=== PATIENT | male | born 1960 | race Caucasian/White ===

== ENCOUNTER 2017-11-15 06:27 | Day surgery (SDC) | payer OTHER ==
[2017-11-15] MEDS: BUPIVACAINE 0.25% (MPF) 30 ML INJ INJ
[~2017-11-15 06:27] MED LIST: CEFAZOLIN 2 GM/50 ML (PMX) 50 ML IVPB; SOD CHLORIDE 0.9% 1,000 ML IV
[2017-11-15] MEDS ORDERED: LIDOCAINE 100 MG SYRINGE (10:15)
[2017-11-15] MEDS ORDERED: PROPOFOL 20 ML (10:15)
[2017-11-15] MEDS ORDERED: ONDANSETRON 4 MG INJ (10:15)
[2017-11-15] MEDS ORDERED: CEFAZOLIN 1 GM INJ (10:15)
[2017-11-15] MEDS ORDERED: MEPERIDINE /PF (100 MG/2 ML) AMPULE (10:15)
[2017-11-15] MEDS ORDERED: BUPIVACAINE 0.25% (MPF) 30 ML INJ (10:23)
[2017-11-15] MEDS ORDERED: FENTAnyl 50 MCG/ML VIAL IV ×3 (10:30)
[2017-11-15] MEDS ORDERED: MIDAZOLAM 1 MG/ML 2 ML INJ IV (10:30)
[2017-11-15] MEDS ORDERED: OXYCODONE/ACETAMINOPHEN (5/325) TAB PO ×2 (10:30)
[2017-11-15] MEDS ORDERED: MEPERIDINE 25 MG INJ IV (10:30)
[2017-11-15] MEDS ORDERED: DIPHENHYDRAMINE 50 MG INJ IV (10:30)
[2017-11-15] MEDS ORDERED: ONDANSETRON 4 MG INJ IV (10:30)
[2017-11-15] MEDS ORDERED: METOCLOPRAMIDE 10 MG INJ IV (10:30)
[2017-11-15] MEDS ORDERED: HYDROCODONE/APAP (5/325) TAB PO (11:00)
[2017-11-15] MEDS: BACITRACIN/POLYMYXIN 28.35 GM OINT TOP (11:15)
== END 2017-11-15 12:40 | disposition home or self-care (01) ==
LOC: SDS 06:27
DX: L72.11 Pilar cyst (principal); E78.00 Pure hypercholesterolemia, unspecified; F17.200 Nicotine dependence, unspecified, uncomplicated
CPT/HCPCS: 14020; 88307